=== PATIENT | male | born 1995 | race Caucasian/White ===

== ENCOUNTER 2016-06-26 10:35 | Emergency (ER) | payer OTHER | END 2016-06-26 12:59 | disposition home or self-care (01) | LOC: ER 10:35 | DX: M54.5 Low back pain (principal); M54.6 Pain in thoracic spine; M51.26 Other intervertebral disc displacement, lumbar region; M99.53 Intervertebral disc stenosis of neural canal of lumbar region; F17.210 Nicotine dependence, cigarettes, uncomplicated; Z88.1 Allergy status to other antibiotic agents | CPT/HCPCS: 72128; 72131; 96372; 99283-25 ==